=== PATIENT | male | born 2000 | race Caucasian/White ===

== ENCOUNTER 2023-01-04 16:34 | Outpatient (CLI) | payer OTHER, SELFPAY ==
--- NOTE | ~2023-01-04 | MR_ITS ---
MRI of the left knee Clinical history: Pain Technique: Coronal proton density and proton density-weighted images, sagittal proton-density and T2 fat-sat images, and axial proton-density fat-saturated images were acquired. Findings: Anterior and posterior cruciate ligaments are intact. Medial collateral ligament and the la teral collateral ligament complex are intact. Popliteus tendon is intact. Medial and lateral menisci are intact, without evidence of tear. Articular cartilage is well preserved throughout the knee. Bone marrow signals are unremarkable. There is mild edema of the quadriceps fat pad. There is minimal tendinosis of the distal quadriceps t endon. Patellar tendon is intact. Small Langley cyst present. No joint effusion. Impression: Small Langley's cyst. Mild edema of the quadriceps fat pad could indicate impingement. Mild tendinosis of the distal quadriceps tendon. Reviewed, dictated and finalized at [facility]. Impression: Small Langley's cyst. Mild edema of the quadriceps fat pad could indicate impingement. Mild tendinosis of the distal quadriceps tendon.
== END 2023-01-04 16:35 | disposition home or self-care (01) ==
PROVIDERS: Visit Provider Orthopaedic Surgery
DX: M71.22 Synovial cyst of popliteal space [Baker], left knee (principal)
CPT/HCPCS: 73721